=== PATIENT | female | born 1960 | race Caucasian/White ===

== ENCOUNTER 2017-04-24 14:16 | Emergency (ER) | payer BC ==
--- NOTE | 2017-04-24 16:05 | EDM.PDOC ---
ED HPI GENERAL MEDICAL PROBLEM - General Chief Complaint: ENT Problem Stated Complaint: ANGIE,LEFT TOOTH ACKE Time Seen by Provider: 04/24/17 14:42 Source of Information: Reports: Patient History Limitations: Reports: No Limitations - History of Present Illness INITIAL COMMENTS - FREE TEXT/NARRATIVE: HISTORY AND PHYSICAL: History of present illness: [56-year-old female complaining of sinus congestion and right-sided sinus pain with foul-smelling discharge for several weeks. Patient has no headache or stiff neck. She is no fevers chills sweats or shaking chills no chest pain or shortness of breath. Otherwise asymptomatic] Review of systems: As per history of present illness and below otherwise all systems reviewed and negative. Past medical history: As per history of present illness and as reviewed below otherwise noncontributory. Surgical history: As per history of present illness and as reviewed below otherwise noncontributory. Social history: No reported history of drug or alcohol abuse. Family history: As per history of present illness and as reviewed below otherwise noncontributory. Physical exam: Well-appearing patient mild sinus tenderness right maxillary sinus. No purulent sinus discharge. Supple neck. No visible intraoral abnormality. No facial swelling. Painless extraocular muscle excursion. No proptosis HEENT: Atraumatic, normocephalic, pupils reactive, negative for conjunctival pallor or scleral icterus, mucous membranes moist, throat clear, neck supple, nontender, trachea midline. Lungs: Clear to auscultation, breath sounds equal bilaterally, chest nontender. Heart: S1S2, regular, negative for clicks, rubs, or JVD. Abdomen: Soft, nondistended, nontender. Negative for masses or hepatosplenomegaly. Negative for costovertebral tenderness. Pelvis: Stable nontender. Genitourinary: Deferred. Rectal: Deferred. Extremities: Atraumatic, negative for cords or calf pain. Neurovascular unremarkable. Neuro: Awake, alert, oriented. Cranial nerves II through XII unremarkable. Cerebellum unremarkable. Motor and sensory unremarkable throughout. Exam nonfocal. Diagnostics: [] Therapeutics: [] Impression: [Sinusitis] Plan: [Signs and symptoms consistent with sinusitis and well-appearing patient is not systemically ill. No evidence of complication. Patient has not been treated previously for this so will prescribe Zithromax. Patient aware to use over-the- counter decongestants as desired and follow-up with her primary care doctor. Workup or treatment indicated. She agrees with outpatient follow-up and strict return precautions given Definitive disposition and diagnosis as appropriate pending reevaluation and review of above. Treatments [employer]: Reports: NSAIDS Left Lower Tooth/Teeth Pain Score (Numeric/FACES): 10 - Related Data Allergies Allergy/AdvReac Type Severity Reaction Status Date / Time acetaminophen Allergy Nausea Verified 04/24/17 14:42 Home Meds: Home Meds Azithromycin [Zithromax] 250 mg PO DAILY #6 tablet 04/24/17 [Rx] Naproxen Sodium 220 mg TID PRN 04/24/17 [History] Past Medical History - Past Health History Medical/Surgical History: Denies Medical/Surgical History [employer] History: Reports: - Past Surgical History Female Surgical History: Reports: Section Social & Family History - Tobacco Use Smoking Status *Q: Never Smoker - Recreational Drug Use Recreational Drug Use: No ED ROS ENT - Review of Systems Review Of Systems: See Below (History of present illness) ED EXAM, ENT - Physical Exam Exam: See Below (History of present illness) Course - Vital Signs Last Recorded V/S: Last Vital Signs Temp 36.1 C 04/24/17 14:33 Pulse 97 04/24/17 14:33 Resp 18 04/24/17 14:33 BP 135/79 04/24/17 14:33 Pulse Ox 97 04/24/17 14:33 Departure - Departure Time of Disposition: 15:57 Disposition: Home, Self-Care 01 Condition: Good Clinical Impression: Acute sinusitis - Discharge Information Prescriptions: Azithromycin [Zithromax] 250 mg PO DAILY #6 tablet Referrals: PCP,None [Primary Care Provider] - Forms: ED Department Discharge Additional Instructions: Her history and symptoms suggest that you have sinusitis. Finish Zithromax as prescribed. Use [id number] decongestants as desired. Follow-up with your DrGraham in one to 2 days and return immediately for new severe or worsening symptoms
[2017-04-24 16:29] VITALS: BP 121/71
== END 2017-04-24 16:26 | disposition home or self-care (01) ==
LOC: MW.ED 14:16
DX: J01.90 Acute sinusitis, unspecified (principal); Z88.6 Allergy status to analgesic agent; Z79.899 Other long term (current) drug therapy
CPT/HCPCS: 99282; 99283